=== PATIENT | male | born 1990 | race Caucasian/White ===

== ENCOUNTER 2018-06-05 19:36 | Emergency (ER) | payer SELFPAY ==
[~2018-06-05] VITALS: Ht 182.9 cm; Wt 122.5 kg
--- OUTSIDE RECORDS SUMMARY | 2018-06-05 19:41 | XMS REPORT ---
Author Author JUANJO LAFLEUR Organization [facility] [place] Address [address] [place] [address] Care Team Providers Care Stoker Installer Name Role Phone JUANJO LAFLEUR Unavailable PROBLEMS Type Condition ICD9-CM Code NDU57-VP Code Onset Dates Condition Status SNOMED Code Problem Hemiplegic migraine without status migrainosus, not intractable G43.409 Active [id number] ALLERGIES No Known Allergies ENCOUNTERS Encounter Location Date Diagnosis [facility] [place] [address] [place] [address] C [id number] [place], [place] [id number] May, Hemiplegic migraine without status migrainosus, not intractable G43.409 [facility] [place] [address] [place] [address] C [id number] [place], [place] [id number] May, Hemiplegic migraine without status migrainosus, not intractable G43.409 [facility] [place] [address] [place] [address] C [id number] [place], [place] [id number] May, Hemiplegic migraine without status migrainosus, not intractable G43.409 [facility] [place] [address] [place] [address] C [id number] [place], [place] [id number] Feb, Hemiplegic migraine without status migrainosus, not intractable G43.409 [facility] [place] [address] [place] [address] C [id number] [place], [place] [id number] Dec, [facility] [place] [address] [place] [address] C [id number] [place], [place] [id number] Oct, Nasopharyngitis acute J00 and Hemiplegic migraine without status migrainosus, not intractable G43.409 [facility] [place] [address] [facility] C [id number] [place], [place] [id number] Oct, [facility] [place] [address] [place] [address] C [id number] [place], [place] [id number] Sep, Hemiplegic migraine without status migrainosus, not intractable G43.409 [facility] [place] [address] [facility] [id number] [place] [id number] Aug, Hemiplegic migraine without status migrainosus, not intractable G43.409 IMMUNIZATIONS No Known Immunizations SOCIAL HISTORY Never Assessed REASON FOR VISIT Establish Care- Needs Med refills. Tiffanie, Was seen in [facility] for migraines and possible seizure in July 2016- Tiffanie PLAN OF CARE Activity Details Follow Up prn, 2 Months Reason: VITAL SIGNS Height 71 in 2016-08-07 Weight 252.2 lbs 2016-08-07 Temperature 98.3 degrees Fahrenheit 2016-08-07 Heart Rate 80 bpm 2016-08-07 Respiratory Rate 18 2016-08-07 BMI 35.17 kg/m2 2016-08-07 Blood pressure systolic 124 mmHg 2016-08-07 Blood pressure diastolic 84 mmHg 2016-08-07 MEDICATIONS Medication Instructions Dosage Frequency Start Date End Date Duration Status Topiramate 50 MG Orally Twice a day 2 tablet 12h Active RESULTS No Results PROCEDURES No Known procedures INSTRUCTIONS MEDICATIONS ADMINISTERED No Known Medications MEDICAL (GENERAL) HISTORY Type Description Date Hospitalization History Migraines July 2016
--- OUTSIDE RECORDS SUMMARY | 2018-06-05 19:41 | XMS REPORT ---
Author Author JUANJO LAFLEUR Organization [facility] [place] Address [address] [place] [address] Care Team Providers Care Content Production Specialist Name Role Phone JUANJO LAFLEUR Unavailable PROBLEMS Type Condition ICD9-CM Code XFK33-GF Code Onset Dates Condition Status SNOMED Code Problem Hemiplegic migraine without status migrainosus, not intractable G43.409 Active [id number] ALLERGIES No Information ENCOUNTERS Encounter Location Date Diagnosis [facility] [place] [address] [place] [address] C [id number] [facility] [place] [id number] May, Hemiplegic migraine without status migrainosus, not intractable G43.409 [facility] [place] [address] [place] [address] C [id number] [place], [place] [id number] May, Hemiplegic migraine without status migrainosus, not intractable G43.409 [facility] [place] [address] [place] [address] C [id number] [place], [place] [id number] May, Hemiplegic migraine without status migrainosus, not intractable G43.409 [facility] [place] [address] [place] [address] C [id number] [place], [place] [id number] Feb, Hemiplegic migraine without status migrainosus, not intractable G43.409 [facility] [place] [address] [place] [address] C [id number] [place], [place] [id number] Dec, [facility] [place] [address] [place] [address] C [id number] [place] [id number] Oct, Nasopharyngitis acute J00 and Hemiplegic migraine without status migrainosus, not intractable G43.409 [facility] [place] [address] [facility] C [id number] [place], [place] [id number] Oct, [facility] [place] [address] [place] [address] C [id number] [place], [place] [id number] Sep, Hemiplegic migraine without status migrainosus, not intractable G43.409 [facility] [place] [address] [facility] [id number] [place] [id number] Aug, Hemiplegic migraine without status migrainosus, not intractable G43.409 IMMUNIZATIONS No Known Immunizations SOCIAL HISTORY Never Assessed REASON FOR VISIT medication refill PLAN OF CARE VITAL SIGNS MEDICATIONS Medication Instructions Dosage Frequency Start Date End Date Duration Status Topiramate 50 mg Orally Twice a day 2 tablet 12h Active RESULTS No Results PROCEDURES No Known procedures INSTRUCTIONS MEDICATIONS ADMINISTERED No Known Medications MEDICAL (GENERAL) HISTORY Type Description Date Hospitalization History Migraines July 2016
--- OUTSIDE RECORDS SUMMARY | 2018-06-05 19:41 | XMS REPORT ---
Author Author JUANJO LAFLEUR Organization [facility] Fred [place] Address [address] [place] [address] Care Team Providers Care Locker Room Attendant Name Role Phone LAFLEURJUANJO Unavailable PROBLEMS Type Condition ICD9-CM Code VSZ70-XJ Code Onset Dates Condition Status SNOMED Code Problem Hemiplegic migraine without status migrainosus, not intractable G43.409 Active [id number] ALLERGIES No Information ENCOUNTERS Encounter Location Date Diagnosis [facility] [place] [address] [place] [address] May, Hemiplegic migraine without status migrainosus, not intractable G43.409 [facility] [place] [address] [place] [address] May, Hemiplegic migraine without status migrainosus, not intractable G43.409 [facility] [place] [address] [place] [address] May, Hemiplegic migraine without status migrainosus, not intractable G43.409 [facility] [place] [address] [place] [address] Feb, Hemiplegic migraine without status migrainosus, not intractable G43.409 [facility] [place] [address] [place] [address] Dec, [facility] [place] [address] [place] [address] Oct, Nasopharyngitis acute J00 and Hemiplegic migraine without status migrainosus, not intractable G43.409 [facility] [place] [address] [place] [address] Oct, [facility] [place] [address] [place] [address] Sep, Hemiplegic migraine without status migrainosus, not intractable G43.409 [facility] [place] [address] [place] [address] Aug, Hemiplegic migraine without status migrainosus, not intractable G43.409 IMMUNIZATIONS No Known Immunizations SOCIAL HISTORY Never Assessed REASON FOR VISIT PLAN OF CARE VITAL SIGNS MEDICATIONS Medication Instructions Dosage Frequency Start Date End Date Duration Status Topiramate 50 mg Orally twice a day 1 tablet 12h 30 days Active RESULTS No Results PROCEDURES No Known procedures INSTRUCTIONS MEDICATIONS ADMINISTERED No Known Medications MEDICAL (GENERAL) HISTORY Type Description Date Hospitalization History Migraines July 2016
--- OUTSIDE RECORDS SUMMARY | 2018-06-05 19:41 | XMS REPORT ---
Author Author [facility]JO [facility]AFLEUR [facility] [address] [facility] Address [address] [place] [address] Care Team Providers Care Risk Engineer Name Role Phone CIARRA JUANJO Unavailable PROBLEMS Type Condition ICD9-CM Code MDY03-HJ Code Onset Dates Condition Status SNOMED Code Problem Hemiplegic migraine without status migrainosus, not intractable G43.409 Active [id number] ALLERGIES No Information ENCOUNTERS Encounter Location Date Diagnosis [facility] [address] [place] [phone] Oct, Hemiplegic migraine without status migrainosus, not intractable G43.409 [facility] [address] [place] [address] May, Hemiplegic migraine without status migrainosus, not intractable G43.409 [facility] [address] [place] [address] May, Hemiplegic migraine without status migrainosus, not intractable G43.409 [facility] [address] [place] [address] May, Hemiplegic migraine without status migrainosus, not intractable G43.409 [facility] [address] [place] [address] Feb, Hemiplegic migraine without status migrainosus, not intractable G43.409 [facility] [address] [place] [address] Dec, [facility] [address] [place] [address] Oct, Nasopharyngitis acute J00 and Hemiplegic migraine without status migrainosus, not intractable G43.409 [facility] [address] [place] [address] Oct, [facility] [address] [place] [address] Sep, Hemiplegic migraine without status migrainosus, not intractable G43.409 [facility] [address] [place] [address] Aug, Hemiplegic migraine without status migrainosus, not intractable G43.409 IMMUNIZATIONS No Known Immunizations SOCIAL HISTORY Never Assessed REASON FOR VISIT Medication refill request PLAN OF CARE VITAL SIGNS MEDICATIONS Medication Instructions Dosage Frequency Start Date End Date Duration Status Topiramate 50 mg Orally twice a day 1 tablet 12h 30 days Active RESULTS No Results PROCEDURES No Known procedures INSTRUCTIONS MEDICATIONS ADMINISTERED No Known Medications MEDICAL (GENERAL) HISTORY Type Description Date Hospitalization History Migraines July 2016
--- OUTSIDE RECORDS SUMMARY | 2018-06-05 19:42 | XMS REPORT ---
Author Author JUANJO LAFLEUR Organization [facility] [place] Address [address] [place] [address] Care Team Providers Care Automotive Dismantler Name Role Phone JUANJO LAFLEUR Unavailable PROBLEMS Type Condition ICD9-CM Code DEK02-VS Code Onset Dates Condition Status SNOMED Code Problem Hemiplegic migraine without status migrainosus, not intractable G43.409 Active [id number] ALLERGIES No Information ENCOUNTERS Encounter Location Date Diagnosis [facility] [place] [address] [place] [address] C [id number] [facility] [place] [id number] May, Hemiplegic migraine without status migrainosus, not intractable G43.409 [facility] [place] [address] [place] [address] C [id number] [place] [phone] May, Hemiplegic migraine without status migrainosus, not intractable G43.409 [facility] [place] [address] [place] [address] C [id number] [place], [place] [id number] May, Hemiplegic migraine without status migrainosus, not intractable G43.409 [facility] [place] [address] [place] [address] C [id number] [place] [id number] Feb, Hemiplegic migraine without status migrainosus, not intractable G43.409 [facility] [place] [address] [place] [address] C [id number] [place] [id number] Dec, [facility] [place] [address] [place] [address] C [id number] [place] [id number] Oct, Nasopharyngitis acute J00 and Hemiplegic migraine without status migrainosus, not intractable G43.409 [facility] [place] [address] [facility] C [id number] [place] [id number] Oct, [facility] [place] [address] [place] [address] C [id number] [place] [id number] Sep, Hemiplegic migraine without status migrainosus, not intractable G43.409 [facility] [place] [address] [facility] [id number] [place] [id number] Aug, Hemiplegic migraine without status migrainosus, not intractable G43.409 IMMUNIZATIONS No Known Immunizations SOCIAL HISTORY Never Assessed REASON FOR VISIT refill request PLAN OF CARE VITAL SIGNS MEDICATIONS Medication Instructions Dosage Frequency Start Date End Date Duration Status Topiramate 50 mg Orally Twice a day 2 tablet 12h Active RESULTS No Results PROCEDURES No Known procedures INSTRUCTIONS MEDICATIONS ADMINISTERED No Known Medications MEDICAL (GENERAL) HISTORY Type Description Date Hospitalization History Migraines July 2016
--- OUTSIDE RECORDS SUMMARY | 2018-06-05 19:42 | XMS REPORT ---
Author Author JUANJO LAFLEUR Organization [facility] [place] Address [address] [place] [address] Care Team Providers Care Patient Safety Manager Name Role Phone JUANJO LAFLEUR Unavailable PROBLEMS Type Condition ICD9-CM Code LUA42-WF Code Onset Dates Condition Status SNOMED Code Problem Hemiplegic migraine without status migrainosus, not intractable G43.409 Active [id number] ALLERGIES No Information ENCOUNTERS Encounter Location Date Diagnosis [facility] [place] [address] [place] [address] C [id number] [facility] [id number] May, Hemiplegic migraine without status migrainosus, not intractable G43.409 [facility] [place] [address] [place] [address] C [id number] [place] [id number] May, Hemiplegic migraine without status migrainosus, not intractable G43.409 [facility] [place] [address] [place] [address] C [id number] [place] [id number] May, Hemiplegic migraine without status migrainosus, not intractable G43.409 [facility] [place] [address] [place] [address] C [id number] [place] [id number] Feb, Hemiplegic migraine without status migrainosus, not intractable G43.409 [facility] [place] [address] [place] [address] C [id number] [place], [place] [id number] Dec, [facility] [place] [address] [place] [address] C [id number] [place] [id number] Oct, Nasopharyngitis acute J00 and Hemiplegic migraine without status migrainosus, not intractable G43.409 [facility] [place] [address] [facility] C [id number] [place] [id number] Oct, [facility] [place] [address] [place] [address] C [id number] [place] [id number] Sep, Hemiplegic migraine without status migrainosus, not intractable G43.409 [facility] [place] [address] [facility] [id number] [place] [phone] Aug, Hemiplegic migraine without status migrainosus, not intractable G43.409 IMMUNIZATIONS No Known Immunizations SOCIAL HISTORY Never Assessed REASON FOR VISIT Refill request PLAN OF CARE VITAL SIGNS MEDICATIONS Unknown Medications RESULTS No Results PROCEDURES No Known procedures INSTRUCTIONS MEDICATIONS ADMINISTERED No Known Medications MEDICAL (GENERAL) HISTORY Type Description Date Hospitalization History Migraines July 2016
--- OUTSIDE RECORDS SUMMARY | 2018-06-05 19:42 | XMS REPORT ---
Author Author JUANJO LAFLEUR [facility] [place] Address [address] [place] [address] Care Team Providers Care Pharmacoepidemiologist Name Role Phone JUANJO LAFLEUR Unavailable PROBLEMS Type Condition ICD9-CM Code DNN77-ZU Code Onset Dates Condition Status SNOMED Code Problem Hemiplegic migraine without status migrainosus, not intractable G43.409 Active 67772478 ALLERGIES No Known Allergies ENCOUNTERS Encounter Location Date Diagnosis [facility] [place] [address] [place] [address] C [id number] [place] [id number] May, Hemiplegic migraine without status migrainosus, not intractable G43.409 [facility] [place] [address] [place] [address] C [id number] [place] [id number] May, Hemiplegic migraine without status migrainosus, not intractable G43.409 [facility] [place] [address] [place] [address] C [id number] [place], [place] [id number] May, Hemiplegic migraine without status migrainosus, not intractable G43.409 [facility] [place] [address] [place] [address] C [id number] [place] [id number] Feb, Hemiplegic migraine without status migrainosus, not intractable G43.409 [facility] [place] [address] [place] [address] C [id number] [place], [place] [id number] Dec, [facility] [place] [address] [place] [address] C [id number] [place], [place] [id number] Oct, Nasopharyngitis acute J00 and Hemiplegic migraine without status migrainosus, not intractable G43.409 [facility] [place] [address] [facility] C [id number] [place] [id number] Oct, [facility] [place] [address] [place] [address] C [id number] [place] [id number] Sep, Hemiplegic migraine without status migrainosus, not intractable G43.409 [facility] [place] [address] [facility] [id number] [place], [place] [id number] Aug, Hemiplegic migraine without status migrainosus, not intractable G43.409 IMMUNIZATIONS No Known Immunizations SOCIAL HISTORY Never Assessed REASON FOR VISIT 2 month f/u, Can't breathe, [place] PLAN OF CARE Activity Details Follow Up prn, 3 Months Reason: VITAL SIGNS Height 71 in 2016-10-22 Weight 237.3 lbs 2016-10-22 Heart Rate 79 bpm 2016-10-22 Respiratory Rate 18 2016-10-22 BMI 33.09 kg/m2 2016-10-22 Blood pressure systolic 134 mmHg 2016-10-22 Blood pressure diastolic 94 mmHg 2016-10-22 MEDICATIONS Medication Instructions Dosage Frequency Start Date End Date Duration Status Topiramate 50 mg Orally Twice a day 2 tablet 12h Active RESULTS No Results PROCEDURES No Known procedures INSTRUCTIONS MEDICATIONS ADMINISTERED No Known Medications MEDICAL (GENERAL) HISTORY Type Description Date Hospitalization History Migraines July 2016
--- OUTSIDE RECORDS SUMMARY | 2018-06-05 19:42 | XMS REPORT ---
Author Author JUANJO LAFLEUR [facility] Address [address] [place] [address] Care Team Providers Care Laborer Aquatic Life Name Role Phone JUANJO LAFLEUR Unavailable PROBLEMS Type Condition ICD9-CM Code DHV89-UZ Code Onset Dates Condition Status SNOMED Code Problem Hemiplegic migraine without status migrainosus, not intractable G43.409 Active [id number] ALLERGIES No Information ENCOUNTERS Encounter Location Date Diagnosis [address] [id number] May, Hemiplegic migraine without status migrainosus, not intractable G43.[address] [id number] May, Hemiplegic migraine without status migrainosus, not intractable G43.[address] [id number] May, Hemiplegic migraine without status migrainosus, not intractable G43.[address] [id number] Feb, Hemiplegic migraine without status migrainosus, not intractable G43.[address] [id number] Dec, [address] [id number] Oct, Nasopharyngitis acute J00 and Hemiplegic migraine without status migrainosus, not intractable G43.[address] [id number] Oct, [address] [id number] Sep, Hemiplegic migraine without status migrainosus, not intractable G43.[address] [id number] Aug, Hemiplegic migraine without status migrainosus, not intractable G43.409 IMMUNIZATIONS No Known Immunizations SOCIAL HISTORY Never Assessed REASON FOR VISIT Repository Medication PLAN OF CARE VITAL SIGNS MEDICATIONS Medication Instructions Dosage Frequency Start Date End Date Duration Status Topiramate 50 mg Orally Twice a day 2 tablet 12h Active RESULTS No Results PROCEDURES No Known procedures INSTRUCTIONS MEDICATIONS ADMINISTERED No Known Medications MEDICAL (GENERAL) HISTORY Type Description Date Hospitalization History Migraines July 2016
--- OUTSIDE RECORDS SUMMARY | 2018-06-05 19:42 | XMS REPORT ---
Author Author JUANJO LAFLEUR Organization [facility] [place] Address [address] [place] [address] Care Team Providers Care Director Of Sustainability Programs Name Role Phone JUANJO LAFLEUR Unavailable PROBLEMS Type Condition ICD9-CM Code NBV55-KB Code Onset Dates Condition Status SNOMED Code Problem Hemiplegic migraine without status migrainosus, not intractable G43.409 Active [id number] ALLERGIES No Information ENCOUNTERS Encounter Location Date Diagnosis [facility] [place] [address] [place] [address] C [id number] [facility] [place] [id number] May, Hemiplegic migraine without status migrainosus, not intractable G43.409 [facility] [place] [address] [place] [address] C [id number] [place], [place] [id number] May, Hemiplegic migraine without status migrainosus, not intractable G43.409 [facility] [place] [address] [place] [address] C [id number] [place], [place] [id number] May, Hemiplegic migraine without status migrainosus, not intractable G43.409 [facility] [place] [address] [place] [address] C [id number] [place], [place] [id number] Feb, Hemiplegic migraine without status migrainosus, not intractable G43.409 [facility] [place] [address] [place] [address] C [id number] [place], [place] [id number] Dec, [facility] [place] [address] [place] [address] C [id number] [place], [place] [id number] Oct, Nasopharyngitis acute J00 and Hemiplegic migraine without status migrainosus, not intractable G43.409 [facility] [place] [address] [facility] C [id number] [place], [place] [id number] Oct, [facility] [place] [address] [place] [address] C [id number] [place], [place] [id number] Sep, Hemiplegic migraine without status migrainosus, not intractable G43.409 [facility] [place] [address] [facility] [id number] [place] [id number] Aug, Hemiplegic migraine without status migrainosus, not intractable G43.409 IMMUNIZATIONS No Known Immunizations SOCIAL HISTORY Never Assessed REASON FOR VISIT Medication question PLAN OF CARE VITAL SIGNS MEDICATIONS Medication Instructions Dosage Frequency Start Date End Date Duration Status Ibuprofen 800 MG Orally Three times a day PRN 1 tablet with food or milk Feb, 30 days Active RESULTS No Results PROCEDURES No Known procedures INSTRUCTIONS MEDICATIONS ADMINISTERED No Known Medications MEDICAL (GENERAL) HISTORY Type Description Date Hospitalization History Migraines July 2016
--- OUTSIDE RECORDS SUMMARY | 2018-06-05 19:42 | XMS REPORT ---
Author Author JUANJO LAFLEUR [facility] [place] Address [address] [place] [address] Care Team Providers Care Quantitative Analyst Name Role Phone LAFLEURJUANJO Unavailable PROBLEMS Type Condition ICD9-CM Code [id number] Code Onset Dates Condition Status SNOMED Code Problem Hemiplegic migraine without status migrainosus, not intractable G43.409 Active [id number] ALLERGIES No Known Allergies ENCOUNTERS Encounter Location Date Diagnosis [facility] [address] [id number] May, Hemiplegic migraine without status migrainosus, not intractable G43.409 [facility] [place] [address] [place] [id number] May, Hemiplegic migraine without status migrainosus, not intractable G43.409 [facility] [place] [address] [place] [id number] May, Hemiplegic migraine without status migrainosus, not intractable G43.409 [facility] [place] [address] [place] [phone] Feb, Hemiplegic migraine without status migrainosus, not intractable G43.409 [facility] [place] [address] [place] [phone] Dec, [facility] [place] [address] [place] [phone] Oct, Nasopharyngitis acute J00 and Hemiplegic migraine without status migrainosus, not intractable G43.409 [facility] [place] [address] [place] [phone] Oct, [facility] [place] [address] [place] [phone] Sep, Hemiplegic migraine without status migrainosus, not intractable G43.409 [facility] [place] [address] [place] [phone] Aug, Hemiplegic migraine without status migrainosus, not intractable G43.409 IMMUNIZATIONS No Known Immunizations SOCIAL HISTORY Never Assessed REASON FOR VISIT med check-amorrisonlpn PLAN OF CARE Activity Details Follow Up prn Reason: VITAL SIGNS Height 71 in 2017-05-20 Weight 266.2 lbs 2017-05-20 Temperature 97.8 degrees Fahrenheit 2017-05-20 Heart Rate 81 bpm 2017-05-20 Respiratory Rate 16 2017-05-20 BMI 37.12 kg/m2 2017-05-20 Blood pressure systolic 158 mmHg 2017-05-20 Blood pressure diastolic 97 mmHg 2017-05-20 MEDICATIONS Medication Instructions Dosage Frequency Start Date End Date Duration Status Topiramate 50 mg Orally Twice a day 2 tablet 12h Active Ibuprofen 800 MG Orally Three times a day 1 tablet with food or milk as needed 8h May, Active RESULTS No Results PROCEDURES No Known procedures INSTRUCTIONS MEDICATIONS ADMINISTERED No Known Medications MEDICAL (GENERAL) HISTORY Type Description Date Hospitalization History Migraines July 2016
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
[2018-06-05] MEDS ORDERED: TETANUS,DIPTH,PERTUSS P/F (BOOSTRIX) 0.5 ML VIAL IM ONE (21:00)
[2018-06-05] MEDS ORDERED: toPIRamate 25 MG (TOPAMAX) TAB PO ONE (22:00)
[2018-06-05] MEDS ORDERED: CEPHALEXIN 250 MG (KEFLEX) CAP PO STA (23:01)
[2018-06-05 23:40] VITALS: BP 144/68
[2018-06-06] MEDS ORDERED: HYDR-4227 PO (00:08)
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
== END 2018-06-05 23:40 | disposition left against medical advice (07) ==
LOC: ER FS 19:38
DX: S82.54XA Nondisplaced fracture of medial malleolus of right tibia, initial encounter for closed fracture (principal); S22.31XA Fracture of one rib, right side, initial encounter for closed fracture; S81.831A Puncture wound without foreign body, right lower leg, initial encounter; S61.411A Laceration without foreign body of right hand, initial encounter; R40.2142 Coma scale, eyes open, spontaneous, at arrival to emergency department; R40.2252 Coma scale, best verbal response, oriented, at arrival to emergency department; R40.2362 Coma scale, best motor response, obeys commands, at arrival to emergency department; Z23 Encounter for immunization; V49.40XA Driver injured in collision with unspecified motor vehicles in traffic accident, initial encounter
CPT/HCPCS: 70450; 71250; 72125; 73130; 73590; 73610; 90715

== ENCOUNTER 2019-11-17 20:19 | Emergency (ER) | payer OTHER ==
[~2019-11-17 20:19] MED LIST: HYDR-4227 PO
[2019-11-17] MEDS ORDERED: TETANUS,DIPTH,PERTUSS P/F (BOOSTRIX) 0.5 ML VIAL IM ONE (20:30)
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
[2019-11-17 21:51] VITALS: BP 112/48
[2019-11-17 22:44] VITALS: BP 100/70
== END 2019-11-17 22:45 | disposition home or self-care (01) ==
LOC: EDUNIT# 20:19 → ER FS 20:20
DX: S01.112A Laceration without foreign body of left eyelid and periocular area, initial encounter (principal); S00.81XA Abrasion of other part of head, initial encounter; F10.129 Alcohol abuse with intoxication, unspecified; Z23 Encounter for immunization; X58.XXXA Exposure to other specified factors, initial encounter
CPT/HCPCS: 90715; 99283